=== PATIENT | male | born 1945 | race Caucasian/White ===

== ENCOUNTER 2023-08-20 16:05 | Inpatient (IN) | payer OTHER ==
[~2023-08-20] VITALS: Ht 170.2 cm; Wt 58.6 kg
[2023-08-20 16:18] VITALS: BP_SYST 108; PULSE 64; RESP 19; TEMP 100.8; O2SAT 98
[2023-08-20 17:12] LABS: INFLUENZA TYPE A Negative (NEGATIVE); INFLUENZA TYPE B NEGATIVE (NEGATIVE)
[2023-08-20 17:20] LABS: COVID19 ANTIGEN SOFIA FIA POSITIVE (NEGATIVE)
[2023-08-20] MEDS ORDERED: NIRM1TAB PO ×2 (17:37)
[2023-08-20] MEDS ORDERED: ACET-2634 PO (17:37)
[2023-08-20] MEDS ORDERED: GUAI-723 PO (17:39)
[2023-08-20] MEDS ORDERED: BENZ100C92 PO (17:39)
[2023-08-20] MEDS ORDERED: ACETAMINOPHEN 500 MG TABLET PO ONE (17:45)
[2023-08-20 19:07] LABS: BASOPHILS % (AUTO) 0.4 % (0.0-2.0); HEMATOCRIT 40.7 % (36-54); HEMOGLOBIN 13.7 g/dL (14.0-18.0); LYMPHOCYTES # (AUTO) 0.7 K/uL (1.0-5.5); LYMPHOCYTES % (AUTO) 8.1 % (20.5-51.5); MEAN CORPUSCULAR HEMOGLOBIN 30 pg (27-31); MEAN CORPUSCULAR HGB CONC 34 % (32-36); MEAN CORPUSCULAR VOLUME 88 fL (79.0-98.0); MONOCYTES # (AUTO) 0.6 K/uL (0.0-1.0); MONOCYTES % (AUTO) 7.9 % (1.7-9.3); NEUTROPHILS # (AUTO) 6.8 K/uL (1.8-7.7); NEUTROPHILS % (AUTO) 83.6 % (40.0-70.0); PLATELET COUNT (AUTO) 104 K/uL (130-430); RED BLOOD CELL COUNT(AUTO) 4.65 MIL/uL (4.2-6.2); RED CELL DISTRIBUTION WIDTH 13.3 % (9.0-15.0); WHITE BLOOD COUNT (AUTO) 8.1 K/uL (4.8-10.8)
[2023-08-20 19:20] LABS: INR 1.2 (0.80-1.20); PROTHROMBIN TIME 12.6 SECS (9.5-12.5)
[2023-08-20 19:24] LABS: ALANINE AMINOTRANSFERASE 17 U/L (12-78); ALBUMIN 3.7 g/dL (3.4-4.8); ANION GAP 9 (5-15); ASPARTATE AMINOTRANSFERASE 26 U/L (10-37); CALCIUM 8.7 mg/dL (8.4-11.0); CARBON DIOXIDE 21 mmol/L (23-29); CHLORIDE 100 mmol/L (98-107); CREATININE 1.07 mg/dL (0.55-1.30); GLUCOSE 146 mg/dL (74-106); POTASSIUM 3.9 mmol/L (3.5-5.1); SODIUM SERUM 130 mmol/L (136-145); TOTAL BILIRUBIN 1.1 mg/dL (0.0-1.0); TOTAL PROTEIN, SERUM 6.5 g/dL (6.4-8.3); UREA NITROGEN, BLOOD 19 mg/dL (8-21)
[2023-08-20 19:26] LABS: BILIRUBIN,DIRECT 0.3 mg/dL (0.0-0.3)
[2023-08-20 20:55] LABS: BILIRUBIN,URINE NEGATIVE (NEGATIVE); CLARITY/URINE CLEAR (CLEAR); COLOR,URINE YELLOW (YELLOW); GLUCOSE,URINE NEGATIVE (NEGATIVE); KETONES,URINE 1+ (NEGATIVE); LEUKOCYTE ESTERASE ,URINE NEGATIVE (NEGATIVE); NITRITE, URINE NEGATIVE (NEGATIVE); PH,URINE 6.5 (5.0-8.0); PROTEIN URINE TRACE (NEGATIVE)
[2023-08-20 20:58] LABS: BLOOD, URINE TRACE (NEGATIVE)
[2023-08-20] MEDS ORDERED: NACL 0.9% 1,000 ML IV ONE (21:45)
[2023-08-20 21:51] LABS: BACTERIA,URINE FEW /HPF (None Seen); WBC,URINE NONE SEEN /HPF (0-3)
[2023-08-21] MEDS ORDERED: ACETAMINOPHEN 325 MG TABLET ONE ×2 (02:43→15:55)
[2023-08-21] MEDS ORDERED: ACETAMINOPHEN 325 MG TABLET PO PRN ×2 (02:45→14:30)
[2023-08-21 14:28] VITALS: BP_SYST 128; PULSE 65; O2SAT 99
[2023-08-21] MEDS ORDERED: NALOXONE HCL 0.4 MG/ML AMP (NARCAN) IVP PRN ×2 (14:30)
[2023-08-21] MEDS ORDERED: IPRATROPIUM BROM 0.5 MG/2.5 ML VIAL.NEB (ATROVENT) INH PRN (14:30)
[2023-08-21] MEDS ORDERED: HYDROcodone/ACETAMIN 5-325 MG TAB (NORCO/ VICODIN) PO PRN ×2 (14:30)
[2023-08-21] MEDS ORDERED: ALBUTEROL SULFATE 0.083% 2.5 MG/3 ML VIAL.NEB INH PRN (14:30)
[2023-08-21] MEDS ORDERED: ONDANSETRON HCL 4 MG/2 ML VIAL IVP PRN (14:30)
[2023-08-21] MEDS ORDERED: LORazepam 2 MG/ML VIAL IVP PRN (14:30)
[2023-08-21] MEDS: cefTRIAXone 1 GM IVPB PREMIX 50 ML IV SCH (16:00)
[2023-08-21] MEDS: AZITHROMYCIN 500 MG in NS 250 ML IV SCH (16:00)
[2023-08-21 21:00] VITALS: BP_SYST 144; PULSE 66; RESP 16; TEMP 99.5; O2SAT 96
[2023-08-21] MEDS: NORMAL SALINE 5 ML DISP.SYRIN IVF SCH (21:46)
[2023-08-21] MEDS ORDERED: traZODone HCL 50 MG TABLET (DESYREL) PO PRN (22:45)
[2023-08-21] MEDS ORDERED: guaiFENesin/DEXTROMETHORPHAN 10 ML UDC ONE (23:31)
[2023-08-21] MEDS: guaiFENesin/DEXTROMETHORPHAN 10 ML UDC PO PRN (23:32)
[2023-08-22] VITALS: BP_SYST 140; PULSE 64; RESP 16; TEMP 99; O2SAT 96
[2023-08-22] MEDS: NORMAL SALINE 5 ML DISP.SYRIN IVF SCH ×3 (05:14→23:15)
[2023-08-22 07:14] LABS: ALANINE AMINOTRANSFERASE 22 U/L (12-78); ALBUMIN 3.2 g/dL (3.4-4.8); ANION GAP 12 (5-15); ASPARTATE AMINOTRANSFERASE 34 U/L (10-37); CALCIUM 8.4 mg/dL (8.4-11.0); CARBON DIOXIDE 20 mmol/L (23-29); CHLORIDE 102 mmol/L (98-107); CREATININE 0.68 mg/dL (0.55-1.30); GLUCOSE 94 mg/dL (74-106); POTASSIUM 3.3 mmol/L (3.5-5.1); SODIUM SERUM 134 mmol/L (136-145); TOTAL BILIRUBIN 0.6 mg/dL (0.0-1.0); TOTAL PROTEIN, SERUM 5.9 g/dL (6.4-8.3); UREA NITROGEN, BLOOD 16 mg/dL (8-21)
[2023-08-22 07:41] LABS: BASOPHILS % (AUTO) 0.3 % (0.0-2.0); EOSINOPHILS % (AUTO) 0.2 % (0.0-4.0); HEMATOCRIT 40.1 % (36-54); HEMOGLOBIN 13.7 g/dL (14.0-18.0); LYMPHOCYTES # (AUTO) 0.7 K/uL (1.0-5.5); MEAN CORPUSCULAR HEMOGLOBIN 30 pg (27-31); MEAN CORPUSCULAR HGB CONC 34 % (32-36); MEAN CORPUSCULAR VOLUME 87 fL (79.0-98.0); MONOCYTES # (AUTO) 0.5 K/uL (0.0-1.0); MONOCYTES % (AUTO) 11.4 % (1.7-9.3); NEUTROPHILS # (AUTO) 3.3 K/uL (1.8-7.7); NEUTROPHILS % (AUTO) 73.1 % (40.0-70.0); PLATELET COUNT (AUTO) 88 K/uL (130-430); RED BLOOD CELL COUNT(AUTO) 4.64 MIL/uL (4.2-6.2); RED CELL DISTRIBUTION WIDTH 13.4 % (9.0-15.0); WHITE BLOOD COUNT (AUTO) 4.6 K/uL (4.8-10.8)
[2023-08-22 08:27] VITALS: BP_SYST 146; PULSE 64; RESP 18; TEMP 99.7; O2SAT 96
[2023-08-22 11:30] VITALS: BP_SYST 153; PULSE 64; RESP 18; TEMP 98.8; O2SAT 97
[2023-08-22] MEDS: cefTRIAXone 1 GM IVPB PREMIX 50 ML IV SCH (14:03)
[2023-08-22] MEDS: AZITHROMYCIN 500 MG in NS 250 ML IV SCH (15:20)
[2023-08-22 15:31] VITALS: BP_SYST 138; PULSE 66; RESP 16; TEMP 99; O2SAT 97
[2023-08-22 19:00] VITALS: BP_SYST 158; PULSE 72; RESP 16; TEMP 98.3; O2SAT 98
[2023-08-22 20:00] VITALS: BP_SYST 158; PULSE 72; RESP 16; TEMP 98.3; O2SAT 98
[2023-08-22] MEDS: guaiFENesin/DEXTROMETHORPHAN 10 ML UDC PO PRN (20:35)
[2023-08-23] VITALS (7 sets, daily range): BP systolic 138–156; PULSE 61–72; RESP 16–18; TEMP 98.1–98.6; O2SAT 96–99
[2023-08-23] MEDS: NORMAL SALINE 5 ML DISP.SYRIN IVF SCH ×2 (05:15→14:11)
[2023-08-23 06:47] LABS: BASOPHILS % (AUTO) 0.2 % (0.0-2.0); EOSINOPHILS % (AUTO) 0.9 % (0.0-4.0); HEMATOCRIT 40.1 % (36-54); HEMOGLOBIN 13.6 g/dL (14.0-18.0); LYMPHOCYTES # (AUTO) 0.8 K/uL (1.0-5.5); LYMPHOCYTES % (AUTO) 28.6 % (20.5-51.5); MEAN CORPUSCULAR HEMOGLOBIN 29 pg (27-31); MEAN CORPUSCULAR HGB CONC 34 % (32-36); MEAN CORPUSCULAR VOLUME 86 fL (79.0-98.0); MONOCYTES # (AUTO) 0.4 K/uL (0.0-1.0); MONOCYTES % (AUTO) 14.2 % (1.7-9.3); NEUTROPHILS # (AUTO) 1.5 K/uL (1.8-7.7); NEUTROPHILS % (AUTO) 56.1 % (40.0-70.0); PLATELET COUNT (AUTO) 94 K/uL (130-430); RED BLOOD CELL COUNT(AUTO) 4.69 MIL/uL (4.2-6.2); RED CELL DISTRIBUTION WIDTH 13.4 % (9.0-15.0); WHITE BLOOD COUNT (AUTO) 2.7 K/uL (4.8-10.8)
[2023-08-23 07:00] LABS: ERYTHROCYTE SEDIMENTATION RATE 8 MM/HR (0-15)
[2023-08-23 07:42] LABS: ANION GAP 14 (5-15); CALCIUM 8.9 mg/dL (8.4-11.0); CARBON DIOXIDE 23 mmol/L (23-29); CHLORIDE 103 mmol/L (98-107); CREATININE 0.69 mg/dL (0.55-1.30); GLUCOSE 91 mg/dL (74-106); POTASSIUM 3.4 mmol/L (3.5-5.1); SODIUM SERUM 140 mmol/L (136-145); UREA NITROGEN, BLOOD 12 mg/dL (8-21)
[2023-08-23] MEDS ORDERED: POTASSIUM CHLORIDE 20 MEQ TABLET.ER PO ONE (09:15)
[2023-08-23] MEDS ORDERED: LOSARTAN POTASSIUM 50 MG TABLET (COZAAR) PO ONE (15:00)
[2023-08-23] MEDS ORDERED: ASPIRIN 81 MG TABLET(ECOTRIN) PO ONE (15:00)
[2023-08-23] MEDS: cefTRIAXone 1 GM IVPB PREMIX 50 ML IV SCH (16:31)
[2023-08-23] MEDS: AZITHROMYCIN 500 MG in NS 250 ML IV SCH (18:01)
[2023-08-24] VITALS (8 sets, daily range): BP systolic 145–160; PULSE 64–77; RESP 16–20; TEMP 96.8–99; O2SAT 96–100
[2023-08-24] MEDS: NORMAL SALINE 5 ML DISP.SYRIN IVF SCH ×2 (00:30→06:57)
[2023-08-24 06:38] LABS: BASOPHILS % (AUTO) 0.3 % (0.0-2.0); EOSINOPHILS % (AUTO) 1.6 % (0.0-4.0); HEMATOCRIT 41.2 % (36-54); HEMOGLOBIN 13.9 g/dL (14.0-18.0); LYMPHOCYTES % (AUTO) 33.4 % (20.5-51.5); MEAN CORPUSCULAR HEMOGLOBIN 29 pg (27-31); MEAN CORPUSCULAR HGB CONC 34 % (32-36); MEAN CORPUSCULAR VOLUME 86 fL (79.0-98.0); MONOCYTES # (AUTO) 0.3 K/uL (0.0-1.0); MONOCYTES % (AUTO) 10.8 % (1.7-9.3); NEUTROPHILS # (AUTO) 1.6 K/uL (1.8-7.7); NEUTROPHILS % (AUTO) 53.9 % (40.0-70.0); PLATELET COUNT (AUTO) 106 K/uL (130-430); RED BLOOD CELL COUNT(AUTO) 4.81 MIL/uL (4.2-6.2); RED CELL DISTRIBUTION WIDTH 13.4 % (9.0-15.0)
[2023-08-24 07:11] LABS: ALANINE AMINOTRANSFERASE 27 U/L (12-78); ALBUMIN 3.3 g/dL (3.4-4.8); ANION GAP 11 (5-15); ASPARTATE AMINOTRANSFERASE 29 U/L (10-37); CALCIUM 9.2 mg/dL (8.4-11.0); CARBON DIOXIDE 25 mmol/L (23-29); CHLORIDE 106 mmol/L (98-107); CREATININE 0.72 mg/dL (0.55-1.30); GLUCOSE 88 mg/dL (74-106); POTASSIUM 4.1 mmol/L (3.5-5.1); SODIUM SERUM 142 mmol/L (136-145); TOTAL BILIRUBIN 0.5 mg/dL (0.0-1.0); UREA NITROGEN, BLOOD 10 mg/dL (8-21)
[2023-08-24] MEDS ORDERED: LIP20 PO (08:04)
[2023-08-24] MEDS ORDERED: LEVO-62 PO (08:04)
[2023-08-24] MEDS ORDERED: LOSA-413 PO (08:04)
[2023-08-24] MEDS ORDERED: LOSARTAN POTASSIUM 50 MG TABLET (COZAAR) PO SCH (09:00)
[2023-08-24] MEDS ORDERED: ATORVASTATIN 20 MG TABLET PO SCH (09:00)
[2023-08-24] MEDS ORDERED: ASPIRIN 81 MG TABLET(ECOTRIN) PO SCH (09:00)
[2023-08-24 11:32] LABS: ERYTHROCYTE SEDIMENTATION RATE 10 MM/HR (0-15)
== END 2023-08-24 15:35 | disposition home health service (06) | DRG 640 ==
LOC: SED 16:05 → STU 08-21 00:03 → SMU 08-23 16:23
PROVIDERS: ADMIT Preventive Medicine Preventive Medicine/Occupational Environmental Medicine; ATTEND Preventive Medicine Preventive Medicine/Occupational Environmental Medicine
DX: E87.1 Hypo-osmolality and hyponatremia (principal); U07.1 COVID-19; E44.0 Moderate protein-calorie malnutrition; D64.9 Anemia, unspecified; D69.6 Thrombocytopenia, unspecified; E78.5 Hyperlipidemia, unspecified; E87.6 Hypokalemia; D70.9 Neutropenia, unspecified; Z68.20 Body mass index [BMI] 20.0-20.9, adult; E88.09 Other disorders of plasma-protein metabolism, not elsewhere classified; I10 Essential (primary) hypertension; R73.9 Hyperglycemia, unspecified; E77.8 Other disorders of glycoprotein metabolism; I25.10 Atherosclerotic heart disease of native coronary artery without angina pectoris; K21.9 Gastro-esophageal reflux disease without esophagitis; Z95.5 Presence of coronary angioplasty implant and graft
CPT/HCPCS: 36415; 71045; 80048; 80053; 80076; 81000; 81001; 81015; 83605; 84484; 85025; 85384; 85610-TC; 85651-TC; 85730-TC; 87040; 87086; 93005; 94760; 99285; G0378; J0456; J0696; J7050